=== PATIENT | female | born 1990 | race Caucasian/White ===

== ENCOUNTER 2019-05-23 16:56 | Emergency (ER) | payer OTHER ==
[~2019-05-23] VITALS: Ht 157.5 cm; Wt 79.4 kg
[2019-05-23 17:08] VITALS: BP 124/92
--- NOTE | 2019-05-23 18:12 | NUR ---
PATIENT LEFT WITHOUT BEING SEEN BY DR. LASSITER. NO FURTHER CARE PROVIDED FOR PATIENT.
--- NOTE | 2019-05-23 18:38 | NUR ---
3RD CALL N/A IN ER LOBBY
== END 2019-05-23 18:12 | disposition left against medical advice (07) ==
LOC: MED 16:56
DX: R07.89 Other chest pain (principal); Z53.21 Procedure and treatment not carried out due to patient leaving prior to being seen by health care provider

== ENCOUNTER 2020-10-31 18:37 | Emergency (ER) | payer OTHER ==
[~2020-10-31] VITALS: Ht 157.5 cm; Wt 85.7 kg
[2020-10-31 18:40] VITALS: BP 133/81
--- NOTE | 2020-10-31 18:43 | NUR ---
to lobby a/w bed ambulatory
--- NOTE | 2020-10-31 19:54 | NUR ---
PATIENT LEFT WITHOUT BEING SEEN BY DR. MIXON. NO FURTHER CARE PROVIDED FOR PATIENT.
[2020-10-31 19:57] VITALS: BP 133/81
== END 2020-10-31 19:54 | disposition left against medical advice (07) ==
LOC: MED 18:37
DX: R20.0 Anesthesia of skin (principal); Z53.21 Procedure and treatment not carried out due to patient leaving prior to being seen by health care provider

== ENCOUNTER 2021-09-02 12:04 | Emergency (ER) | payer OTHER ==
[~2021-09-02] VITALS: Ht 157.5 cm; Wt 77.1 kg
[2021-09-02 12:11] VITALS: BP 129/85
--- NOTE | 2021-09-02 12:14 | NUR ---
PT TO LOBBY.
[2021-09-02] MEDS ORDERED: ONDANSETRON 4 MG ODT PO ONE (12:45)
--- NOTE | 2021-09-02 13:16 | NUR ---
31/F PRESENTS TO ED WITH C/O 7/10 SHARP CHEST PAIN SINCE THIS MORNING. PATIENT REPORTS SHE WAS AT REST WHEN PAIN CAME ON SUDDENLY, PATIENT REPORTS NAUSEA AND ONE EPISODE OF VOMITING SINCE THIS MORNING. PATIENT DENIES RECENT INJURY OR TRAUMA TO CHEST. DENIES SOB, COUGH OR FEVERS. DENIES TAKING MEDICATION FOR PAIN PRIOR TO ARRIVAL TO ED.
--- NOTE | 2021-09-02 13:24 | NUR ---
MATCH MARKER AT BEDSIDE
[2021-09-02] MEDS ORDERED: LORazepam 1 MG TAB PO ONE (13:35)
[2021-09-02] MEDS ORDERED: IBUPROFEN 600 MG TAB PO ONE (13:35)
[2021-09-02] MEDS ORDERED: ONDA-188 SL (14:14)
[2021-09-02 14:20] VITALS: BP 113/68
--- NOTE | 2021-09-02 14:20 | NUR ---
Patient discharged with v/s stable. Written and verbal after care instructions ABOUT NONSPECIFIC CHEST PAIN AND PANIC ATTACK given and explained. Patient alert, oriented and verbalized understanding of instructions. Ambulatory with steady gait. All questions addressed prior to discharge. ID band removed. Patient advised to follow up with PMD. Rx of ZOFRAN ODT given. Patient educated on indication of medication including possible reaction and side effects. Opportunity to ask questions provided and answered.
== END 2021-09-02 14:20 | disposition home or self-care (01) ==
LOC: MED 12:04
DX: R07.9 Chest pain, unspecified (principal); F41.9 Anxiety disorder, unspecified; Z88.8 Allergy status to other drugs, medicaments and biological substances
CPT/HCPCS: 71045; 81002; 81025; 93005; 99284; Q0162

== ENCOUNTER 2022-03-08 06:35 | Emergency (ER) | payer OTHER ==
[~2022-03-08] VITALS: Ht 157.5 cm; Wt 77.1 kg
[~2022-03-08 06:35] MED LIST: ONDA-188 SL
[2022-03-08 06:50] VITALS: BP 123/90
--- NOTE | 2022-03-08 06:53 | NUR ---
TO LOBBY A/W BED AMBULATORY
[2022-03-08] MEDS ORDERED: PROCHLORPERAZINE 10 MG/2 ML VIAL IM ONE (07:55)
[2022-03-08] MEDS ORDERED: KETOROLAC 15 MG/ML VIAL IM ONE (07:55)
--- NOTE | 2022-03-08 08:15 | NUR ---
31YO FEMALE PT C/O HEADACHE AND INCREASED TIGHT NECK PAIN X1WEEK. PT WITH HX OF ARTHRITIS AND REPORTS S/S. DENIES RELIEF AFTER RX CIMIZIA OR HYDROCODONE. NOTES NAUSEA AND CHILLS X3DAYS. NECK NON TENDER TO TOUCH. FULL ROM WITH SOME DISCOMFORT. DENIES RECENT INJURY, N/V/D, DIZZINESS, CHEST PAIN, SOB OR FEVER. PT AAOX4, HOB POSITIONED PER COMFORT. HX: ANKYLOSING SPONDYLITIS, FIBROMYALGIA, ARTHITIS ALLERGIES:REGLAN
[2022-03-08] MEDS ORDERED: LID5T TP (09:38)
--- NOTE | 2022-03-08 09:50 | NUR ---
31Y/O FEMALE PRESENTED TO ED WITH C/O NECK PAIN X1WEEK, MIGRAINE [id number]. PT REPORTS WORSENING NECK PAIN THIS MORNING, SHARP CONSTANT 5/10 PAIN, SENISITIVY TO LIGHT WHEN HEADACHES OCCUR. PT REPORTS TAKING NORCO WITH MILD RELIEF. PT DENIES DIZZINESS, TRAUMA/INJURY, N/V.
[2022-03-08 09:52] VITALS: BP 116/69
--- NOTE | 2022-03-08 09:52 | NUR ---
Patient discharged with v/s stable. Written and verbal after care instructions about cervical sprain, migraine headache given and explained. Patient alert, oriented and verbalized understanding of instructions. Ambulatory with steady gait. All questions addressed prior to discharge. ID band removed. Patient advised to follow up with PMD. Rx of LIDOCAINE HYD given. Patient educated on indication of medication including possible reaction and side effects. Opportunity to ask questions provided and answered.
== END 2022-03-08 09:52 | disposition home or self-care (01) ==
LOC: MED 06:35
DX: S16.1XXA Strain of muscle, fascia and tendon at neck level, initial encounter (principal); G43.909 Migraine, unspecified, not intractable, without status migrainosus; Z79.899 Other long term (current) drug therapy; Z88.8 Allergy status to other drugs, medicaments and biological substances; X58.XXXA Exposure to other specified factors, initial encounter; Y93.89 Activity, other specified; Y92.89 Other specified places as the place of occurrence of the external cause; Y99.8 Other external cause status
CPT/HCPCS: 81025; 96372; 99284; J0780; J1885; Q0163